=== PATIENT | female | born 1960 | race Caucasian/White ===

== ENCOUNTER → 2017-01-01 | Outpatient (CLI) | payer OTHER ==
--- NOTE | 2017-01-01 17:03 | DI ---
Indication: [email or web address]: CHRONIC PAIN; BLE WEAKNESS; FALLING PROCEDURE: MRI LUMBAR SPINE W/O CONTRAST: Encounter: Initial Comparison: MRI lumbar spine dated January 21, 2016 Technique: Multiplanar multisequence MR imaging of the lumbar spine was performed without contrast. Findings: Alignment lumbar spine is stable. No acute fracture or subluxation. Bone marrow signal intensity is normal. Conus medullaris terminates normally at L1. The paraspinal soft tissues are within normal limits. Segmental analysis: L1-L2: Normal L2-L3: Normal L3-L4: Mild disk desiccation without significant height loss. No central canal or neural foraminal stenosis. L4-L5: Mild disk desiccation and minimal height loss without significant protrusion, central canal or neural foraminal stenosis. L5-S1: Normal Impression: Stable appearance of the lumbar spine without evidence of significant central canal or neural foraminal stenosis. .
== END ==
LOC: IMA.MDS 14:42
PROVIDERS: ATTEND Internal Medicine
DX: G89.29 Other chronic pain (principal); R29.6 Repeated falls; R53.1 Weakness

== ENCOUNTER → 2017-01-08 | Outpatient (CLI) | payer OTHER ==
--- NOTE | 2017-01-08 15:55 | DI ---
Indication: ITS.REASON: CHRONIC PAIN; BLE WEAKNESS; FALLING PROCEDURE: MRI THORACIC SPINE W/O CONTRAS: Encounter: Initial Comparison: February 18, 2016 Technique: Multiplanar, multisequence, thoracic spine protocol MR imaging without contrast of the spine was acquired. FINDINGS: Alignment of the thoracic spine is unchanged. The vertebral body heights are maintained. Age-appropriate degenerative changes are seen within the facet joints and intervertebral disks, but these do not result in significant compromise of the spinal canal or neural foramina. Small central disk bulges are again noted at the T4-T5 and T5-T6 levels. This syrinx extending from the T5-T6 level inferiorly to T10-T11 appears stable. IMPRESSION: Unchanged appearance of the thoracic spine with a thin syrinx involving the mid to distal portion of the thoracic cord. .
--- NOTE | 2017-01-08 16:34 | DI ---
Indication: [email or web address].REASON: CHRONIC PAIN; BLE WEAKNESS; FALLING PROCEDURE: MRI CERVICAL SPINE W/O CONTRAS: Encounter: Initial Comparison: MRI cervical spine dated February 18, 2016 Technique: Multiplanar multisequence MR imaging of the cervical spine was performed without contrast. Findings: Alignment of the cervical spine is stable with mild straightening and loss of the normal lordosis. Vertebral body heights are normal. No acute fracture identified. The cervical spinal cord signal intensity is normal. No cord lesions identified in the cervical portion. Paraspinal soft tissues are unremarkable. No significant degenerative changes. No central canal or neural foraminal stenosis. No appreciable change from the comparison study. Axial images are limited by motion artifact. Impression: Unchanged appearance of the cervical spine. No focal disk herniation, central canal or neural foraminal stenosis. .
== END ==
LOC: IMA.MDS 14:06
PROVIDERS: ATTEND Internal Medicine
DX: G89.29 Other chronic pain (principal); R29.6 Repeated falls; R53.1 Weakness